=== PATIENT | female | born 2000 | race American Indian/Alaskan Native ===

== ENCOUNTER 2021-11-16 13:30 | Outpatient (CLI) | payer MEDICAID ==
--- NOTE | 2021-11-16 14:46 | Ultrasound Report ---
ULTRASOUND BREAST LEFT LIMITED, 11/16/2021 CLINICAL INFORMATION / INDICATION: N60.02. Patient presents for evaluation of an area of palpable con cern in the left breast. TECHNIQUE: Targeted ultrasound evaluation was performed of the area of interest. COMPARISON: None. FINDINGS: Targeted ultrasound of the area of palpable concern in the left breast 1:00 position located 5 cm fro m the nipple reveals an oval circumscribed hypoechoic mass measuring up to 2.2 x 1.4 x 2.1 cm. The ma ss is parallel. There is increased through transmission. Foci of internal vascularity are demonstrate d. IMPRESSION: 1. An oval circumscribed hypoechoic mass accounts for the area of palpable concern in the left breast . 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 Recommend left breast u ltrasound in 6 months to ensure stability. Follow up recommendation: Short term follow up in 6 months. BI-RADS Category 3: PROBABLY BENIGN. Followup in 6 months. A normal or "negative" report should not preclude biopsy or follow-up of a clinically suspicious find ing. Signer Name: Eden Willson MD Signed: 11/16/2021 2:42 PM Workstation Name: [email or web address]
== END 2021-11-16 13:31 | disposition home or self-care (01) ==
LOC: MAMMO 13:30
PROVIDERS: ATTEND Advanced Practice Midwife
DX: N63.20 Unspecified lump in the left breast, unspecified quadrant (principal); N60.02 Solitary cyst of left breast